=== PATIENT | female | born 1955 | race Caucasian/White ===

== ENCOUNTER 2018-10-01 13:39 | Outpatient (CLI) | payer MEDICARE, OTHER ==
--- NOTE | 2018-10-01 23:00 | Consultation ---
DATE OF CONSULTATION: 10/01/2018 GASTROLOGY CONSULTATION CHIEF COMPLAINT: Anemia. HISTORY OF PRESENT ILLNESS: This is a very pleasant 63-year-old female with multiple medical problems, history of gastric ulcer, status post endoscopy three years ago, presents to us for evaluation for screening colonoscopy for evaluation of anemia. PAST MEDICAL HISTORY: 1. History of bleeding gastric ulcer. 2. Hypertension. 3. Diabetes. 4. Asthma and bronchitis. PAST SURGICAL HISTORY: Appendectomy and tonsillectomy. MEDICATIONS: Please see medication reconciliation list. ALLERGIES: No known drug allergies. FAMILY HISTORY: Father of colon cancer. Mother had hypertension, diabetes, and coronary artery disease. SOCIAL HISTORY: The patient denies any tobacco, alcohol, or drug abuse. REVIEW OF SYSTEM: A 10-point review of systems was performed and pertinent positives in HPI. PHYSICAL EXAM: GENERAL: This is a well-developed female, in no acute distress. HEENT: Normocephalic and atraumatic. Sclerae anicteric. NECK: Supple. No evidence of obvious lymphadenopathy. CARDIOVASCULAR: Regular rate and rhythm. Plus S1 and S2. No obvious murmur. LUNGS: Decreased breath sounds bilaterally based on the supine exam. ABDOMEN: Soft and nontender. No rebound. No guarding. No peritoneal sign. EXTREMITIES: No cyanosis. No clubbing. No edema. ASSESSMENT AND PLAN: This is a very pleasant 63-year-old Kisw[place]ili lady with past medical history of diabetes, hypertension, and history of bleeding gastric ulcer. The patient never had a colonoscopy before. Needs screening colonoscopy and given history of peptic ulcer disease and chronic anemia, also needs endoscopy. The patient was informed of the risks and benefits of the procedure. Prep was given to her and she is scheduled for this coming Monday. I want to thank, Dr. Dariel Bhatti, for this kind referral. Brendan Snyder M.D. DR: YUSRA JOB#: [id number] CC: Dariel Bhatti M.D.; Fax#: [phone]
== END 2018-10-01 15:04 | disposition home or self-care (01) ==
LOC: PAN 13:39
DX: D64.9 Anemia, unspecified (principal); I10 Essential (primary) hypertension; E11.9 Type 2 diabetes mellitus without complications; Z90.89 Acquired absence of other organs; Z80.0 Family history of malignant neoplasm of digestive organs

== ENCOUNTER 2018-10-05 10:27 | Day surgery (SDC) | payer MEDICARE, OTHER ==
[~2018-10-05] VITALS: Ht 152.4 cm; Wt 94.3 kg
[2018-10-05] VITALS (9 sets, daily range): BP systolic 158–193; BP diastolic 79–91
[2018-10-05] MEDS ORDERED: MONTELUKAST SOD10 MG ORAL (11:36)
[2018-10-05] MEDS ORDERED: DAPSONE100 MG ORAL (11:36)
[2018-10-05] MEDS ORDERED: LOSARTAN-HCTZ1 EAC1 ORAL (11:36)
[2018-10-05] MEDS ORDERED: JANUMET 50-1,01 EACH ORAL (11:36)
[2018-10-05] MEDS ORDERED: FOLIC ACID1 MG ORAL (11:36)
[2018-10-05] MEDS ORDERED: PANTOPRAZOLE SO40 MG ORAL (11:36)
[2018-10-05] MEDS ORDERED: VERAPAMIL ER180 M1 PO (11:36)
[2018-10-05] MEDS ORDERED: VITAMIN D250000 UNI1 ORAL (11:36)
[2018-10-05] MEDS ORDERED: FERROUS SULFAT325 MG ORAL (11:36)
--- NOTE | 2018-10-05 11:52 | NUR ---
DR. SHELTON STARTED THE IV AT 1150 AM
[2018-10-05] MEDS ORDERED: Propofol 200mg/20ml IV ONE (12:00)
[2018-10-05] MEDS ORDERED: fentaNYL 100 mcg/2 mL IV ONE (12:00)
[2018-10-05] MEDS ORDERED: Midazolam 2mg/2ml Inj ONE (12:00)
--- NOTE | 2018-10-05 12:06 | Pre-Procedure Note/Attestation ---
Pre-Procedure Note/Attestation Complete Prior to Procedure Planned Procedure: not applicable Procedure Narrative: egd/colonoscopy Indications for Procedure Pre-Operative Diagnosis: screening colon, gerd Attestation I attest that I discussed the nature of the procedure; its benefits; risks and complications; and alternatives (and the risks and benefits of such alternatives ), prior to the procedure, with the patient (or the patient's legal hvac sales representative). I attest that, if there was a reasonable possibility of needing a blood transfusion, the patient (or the patient's legal hvac sales representative) was given the [facility] standardized written summary, pursuant to the Dave Tiffany Blood Safety Act ([place] Health and Safety Code # 1645, as amended). I attest that I re-evaluated the patient just prior to the surgery and that there has been no change in the patient's H&P, except as documented below: Brendan Snyder MD Oct 05, 2018 12:06
--- NOTE | 2018-10-05 12:08 | Short Stay Surgery H&P ---
History of Present Illness History of Present Illness Chief Complaint see office note HPI Camille Portillo is a 63 year old female who was admitted on for Anemia Patient History Allergies: Coded Allergies: No Known Allergies (Unverified , 10/04/18) Medication History Scheduled Dapsone* (Dapsone*), 100 MG ORAL DAILY, (Reported) Ergocalciferol (Vitamin D2)* (Vitamin D*), 50,000 UNIT ORAL ONCE A WEEK, ( Reported) Ferrous Sulfate* (Ferrous Sulfate*), 325 MG ORAL DAILY, (Reported) Folic Acid* (Folic Acid*), 1 MG ORAL DAILY, (Reported) Losartan/Hydrochlorothiazide (Losartan-Hctz 100-25 Mg Tab), 1 TAB ORAL DAILY, ( Reported) Montelukast Sodium* (Montelukast Sodium*), 10 MG ORAL DAILY, (Reported) Pantoprazole* (Pantoprazole*), 40 MG ORAL DAILY, (Reported) Sitagliptin Phos/Metformin Hcl (Janumet 50-1,000 Mg Tablet), 1 TAB ORAL TWICE A DAY, (Reported) Verapamil Hcl (Verapamil Er), 180 MG PO DAILY, (Reported) Physical Exam Vital Signs Last Vital Signs Date Time Temp Pulse Resp B/P (MAP) Pulse Ox O2 Delivery O2 Flow Rate FiO2 10/05/18 11:47 Room Air 10/05/18 11:27 98.4 81 18 162/82 95 Plan Attestation Are the patient's medical conditions optimized for surgery? Brendan Snyder MD Oct 05, 2018 12:08
--- NOTE | 2018-10-05 12:16 | Endoscopy Procedure Note ---
Endoscopy Procedure Note General Indication for Procedure: screening colon, GERD Procedures Performed: EGD, colonoscopy Operative Findings/Diagnosis: gastritis, duodenitis, hemorrhoids Specimen: yes Pt Tolerated Procedure Well: Yes Estimated Blood Loss: none Anesthesia Anesthesiologist: radha white Anesthesia: MAC Inserted Devices Implant(s) used?: No Quality Quality of Bowel Preparation: Good Did scope reach the cecum?: Yes Was there any complications?: No GI Core Measures 50 yrs or older w/o bx or poly: No 10yrs. F/U recommended: Yes If not recommended, why?: Above average risk 18 years or older w/prev. colo: No Brendan Snyder MD Oct 05, 2018 12:16
[2018-10-05] MEDS ORDERED: LR 1000ml 1,000 ML IVLG SCH (12:52)
--- NOTE | 2018-10-05 12:52 | Anethesia Preoperative Eval ---
Anesthesia Pre-op PMH/ROS General Date of Evaluation: Oct 05, 2018 Time of Evaluation: 11:40 Anesthesiologist: Nico ASA Score: ASA 3 Mallampati Score Class I : Soft palate, uvula, fauces, pillars visible Class II: Soft palate, uvula, fauces visible Class III: Soft palate, base of uvula visible Class IV: Only hard plate visible Mallampati Classification: Class III Surgeon: Claudio Diagnosis: Abdominal pain anemia Surgical Procedure: EGD Colonoscopy Anesthesia History: none Family History: no anesthesia problems Allergies: Coded Allergies: No Known Allergies (Unverified , 10/04/18) Medications: see eMAR Patient NPO?: Yes Past Medical History Cardiovascular: Reports: HTN; Denies: CAD, [place], valve dz, arrhythmia, other Pulmonary: Reports: IRASEMA Gastrointestinal/Genitourinary: Reports: GERD; Denies: CRI, ESRD, other Neurologic/Psychiatric: Reports: depression/anxiety; Denies: dementia, CVA, TIA, other Endocrine: Reports: DM - poorly controlled on pills; Denies: hypothyroidism, steroids, other HEENT: Denies: cataract (L), cataract (R), glaucoma, [place] (L), [place] (R), other Hematology/Immune: Reports: anemia; Denies: DVT, bleeding disorder, other Other: obesity - morbid obesity PMH Narrative: as above PSxH Narrative: Appendectomy Anesthesia Pre-op Phys. Exam Physician Exam Last Vital Signs Date Time Temp Pulse Resp B/P (MAP) Pulse Ox O2 Delivery O2 Flow Rate FiO2 10/05/18 11:47 Room Air 10/05/18 11:27 98.4 81 18 162/82 95 Constitutional: NAD Neurologic: CN 2-12 intact Cardiovascular: RRR Respiratory: other - some wheezing Airway Exam Mallampati Score: Class III MO: limited Neck: short ROM: limited Teeth: missing Dentures: no upper, no lower Anesthesia Pre-op A/P Risk Assessment & Plan Assessment: ASA3 Plan: MAC Status Change Before Surgery: Ethan Rosario MD Oct 05, 2018 12:52
[2018-10-05] MEDS ORDERED: fentaNYL 100 mcg/2 mL IV PRN (13:00)
--- NOTE | 2018-10-05 13:29 | Immediate Post-Op Evaluation ---
Immediate Post-Op Evalulation Immediate Post-Op Evalulation Procedure: EGD Colonoscopy, polypectomy Date of Evaluation: Oct 05, 2018 Time of Evaluation: 13:27 IV Fluids: 1000 Blood Products: none Estimated Blood Loss: min Urinary Output: none Blood Pressure Systolic: 156 Blood Pressure Diastolic: 78 Pulse Rate: 85 Respiratory Rate: 22 O2 Sat by Pulse Oximetry: 97 Temperature (Fahrenheit): 97.8 Pain Score (1-10): 2 Nausea: No Vomiting: No Complications none Patient Status: awake, patent, none Hydration Status: adequate Ethan Walsh MD Oct 05, 2018 13:29
--- NOTE | 2018-10-05 22:00 | Procedure Note ---
DATE OF PROCEDURE: 10/05/2018 SURGEON: Brendan Snyder M.D. PROCEDURE: Upper endoscopy with biopsy and colonoscopy with biopsy, polypectomy. ANESTHESIA: Per Dr. Walsh. INSTRUMENT: Olympus adult flexible upper endoscope and colonoscope. INDICATION: Screening colonoscopy evaluation, chronic GERD. REASON FOR PROCEDURE: The procedure, risks, benefits, and possible consequences, including hemorrhage, aspiration, perforation and infection, and alternative treatments, were explained to the patient/legal guardian by Dr. Brendan Snyder and the patient/legal guardian understood and accepted these risks. DESCRIPTION OF PROCEDURE: After informed consent was obtained, the patient was adequately sedated, Olympus upper endoscope was advanced from mouth into the second portion of duodenum and retroflexion was performed in the stomach. The patient has evidence of diffuse gastritis. Random biopsy from antrum was obtained to rule out H. pylori infection. Duodenum lining looked abnormal especially in duodenal bulb. Looked like cobblestoning with some maybe 1 or 2 small erosions in the duodenal bulb. Biopsies from the duodenal bulb was also obtained. At this time, the upper endoscope was retrieved and the patient was turned over for colonoscopy. First, rectal exam was performed which was normal. Then, the scope was advanced from the rectum into cecum documented by appendiceal orifice, ileocecal valve, and right upper quadrant palpation. Quality of prep was very good. This colonoscopy was extremely challenging and prolonged. The patient had numerous polyps. In this colonoscopy examination, we took about 14 of them out. In the cecum, the patient had 2 polyps, one measured roughly about 6 mm. The other one was flat and measured roughly about 5 mm. Both removed with hot snare polypectomy technique. In the ascending colon, there were numerous deep polyps, one of them was at least 2.5 cm in size, another one 1.5 cm in size, another one 1 cm in size, and two other smaller ones in the ascending colon. This area was of concern because the big ones, we were able to remove piece by piece and at the end we cauterized with the tip of the snare the area at the base of the polyps. Also the other two large polyps were removed and collected with Joshi Net and removed. The patient had multiple other polyps in the transverse colon, sigmoid colon also. Retroflexion of the rectum also showed evidence of internal hemorrhoids. SUMMARY OF FINDINGS: 1. Gastritis, status post biopsy. 2. Abnormal lining of the duodenum with cobblestoning and erosions, status post biopsy. 3. Multiple polyps, the largest one in the ascending colon over 2.5 cm in size removed by piecemeal fashion. RECOMMENDATIONS: 1. We will recommend follow path and treat accordingly. 2. The patient will need a repeat colonoscopy I would say maybe in 3 months, scope back, and remove more polyps from the ascending colon and make sure the site of the deep polypectomy is completely clear because this procedure was significantly prolonged and the body was very huge and we just wanted to make sure that it is completely excised. If not, then remove more and the patient can have more polyps. So, we are going to communicate with the patient to get back in 3 months for repeat colonoscopy. I want to thank Dr. Dariel Bhatti for this kind referral. Brendan Snyder M.D. DR: MARIBELL JOB#: [id number] CC: Dariel Bhatti M.D.; Fax#: [phone]
== END 2018-10-05 14:25 | disposition home or self-care (01) ==
LOC: GAS 10:27
DX: Z12.11 Encounter for screening for malignant neoplasm of colon (principal); K21.9 Gastro-esophageal reflux disease without esophagitis; K63.5 Polyp of colon; K64.8 Other hemorrhoids; D64.9 Anemia, unspecified; Z79.899 Other long term (current) drug therapy; K29.50 Unspecified chronic gastritis without bleeding; D12.0 Benign neoplasm of cecum; D12.5 Benign neoplasm of sigmoid colon; D12.3 Benign neoplasm of transverse colon; D37.4 Neoplasm of uncertain behavior of colon
CPT/HCPCS: 43239; 45380; 45385; 82962; 93005; J2250; J2704; J3010; 94003; 94150

== ENCOUNTER 2019-01-09 08:10 | Day surgery (SDC) | payer MEDICARE, MEDICAID ==
[2019-01-09] VITALS (8 sets, daily range): BP systolic 137–160; BP diastolic 64–80
[~2019-01-09] VITALS: Ht 165.1 cm; Wt 92.1 kg
[~2019-01-09 08:10] MED LIST: CALCIUM500 M2 PO; DAPSONE100 MG ORAL; FERROUS SULFAT325 MG ORAL; FOLIC ACID1 MG ORAL; JANUMET 50-1,01 EACH ORAL; LOSARTAN-HCTZ1 EAC1 ORAL; LR 1000ml 1,000 ML IVLG SCH; MONTELUKAST SOD10 MG ORAL; PANTOPRAZOLE SO40 MG ORAL; VERAPAMIL ER180 M1 PO; VITAMIN C500 M1 ORAL; VITAMIN D250000 UNI1 ORAL
[2019-01-09] MEDS ORDERED: LR 1000ml 1,000 ML IVLG SCH (09:18)
--- NOTE | 2019-01-09 09:18 | Anethesia Preoperative Eval ---
Anesthesia Pre-op PMH/ROS General Date of Evaluation: Jan 09, 2019 Time of Evaluation: 09:14 Anesthesiologist: Nico ASA Score: ASA 3 Mallampati Score Class I : Soft palate, uvula, fauces, pillars visible Class II: Soft palate, uvula, fauces visible Class III: Soft palate, base of uvula visible Class IV: Only hard plate visible Mallampati Classification: Class III Surgeon: Claudio Diagnosis: Abdominal pain Surgical Procedure: Colonoscopy Anesthesia History: none Family History: no anesthesia problems Allergies: Coded Allergies: No Known Allergies (Unverified , 01/09/19) Medications: see eMAR Patient NPO?: Yes Past Medical History Cardiovascular: Reports: HTN; Denies: CAD, [place], valve dz, arrhythmia, other Pulmonary: Reports: IRASEMA; Denies: asthma, COPD, other Gastrointestinal/Genitourinary: Reports: GERD; Denies: CRI, ESRD, other Neurologic/Psychiatric: Denies: dementia, CVA, depression/anxiety, TIA, other Endocrine: Reports: DM; Denies: hypothyroidism, steroids, other HEENT: Denies: cataract (L), cataract (R), glaucoma, [place] (L), [place] (R), other Hematology/Immune: Denies: anemia, DVT, bleeding disorder, other Musculoskeletal/Integumentary: Denies: OA, RA, DJD, DDD, edema, other Other: obesity PMH Narrative: as above PSxH Narrative: see H&P Anesthesia Pre-op Phys. Exam Physician Exam Last Vital Signs Date Time Temp Pulse Resp B/P (MAP) Pulse Ox O2 Delivery O2 Flow Rate FiO2 01/09/19 09:05 Room Air 01/09/19 08:54 97.4 84 18 157/80 94 Constitutional: NAD Neurologic: CN 2-12 intact Cardiovascular: RRR, no M/R/G Respiratory: CTA Gastrointestinal: other - obesity Airway Exam Mallampati Score: Class III MO: limited Neck: short ROM: limited Teeth: intact Dentures: no upper, no lower Anesthesia Pre-op A/P Risk Assessment & Plan Assessment: ASA 3 Plan: MAC Status Change Before Surgery: Ethan Rosario MD Jan 09, 2019 09:18
[2019-01-09] MEDS ORDERED: fentaNYL 100 mcg/2 mL IV PRN (09:30)
--- NOTE | 2019-01-09 09:32 | Pre-Procedure Note/Attestation ---
Pre-Procedure Note/Attestation Complete Prior to Procedure Planned Procedure: not applicable Procedure Narrative: colon oscopy Indications for Procedure Pre-Operative Diagnosis: multiple colon polyps Attestation I attest that I discussed the nature of the procedure; its benefits; risks and complications; and alternatives (and the risks and benefits of such alternatives ), prior to the procedure, with the patient (or the patient's legal motor vehicle representative). I attest that, if there was a reasonable possibility of needing a blood transfusion, the patient (or the patient's legal motor vehicle representative) was given the [facility] standardized written summary, pursuant to the Dave Langhorne Blood Safety Act ([place] Health and Safety Code # 1645, as amended). I attest that I re-evaluated the patient just prior to the surgery and that there has been no change in the patient's H&P, except as documented below: Brendan Snyder MD Jan 09, 2019 09:32
--- NOTE | 2019-01-09 09:32 | Short Stay Surgery H&P ---
History of Present Illness History of Present Illness Chief Complaint see recent office note HPI Camille Portillo is a 63 year old female who was admitted on for Multiple Colonic Polyps Patient History Allergies: Coded Allergies: No Known Allergies (Unverified , 01/09/19) Medication History Scheduled Ascorbic Acid* (Vitamin C*), 500 MG ORAL DAILY, (Reported) Calcium Carbonate (Calcium), 500 MG PO DAILY, (Reported) Dapsone* (Dapsone*), 100 MG ORAL DAILY, (Reported) Ergocalciferol (Vitamin D2)* (Vitamin D*), 50,000 UNIT ORAL ONCE A WEEK, ( Reported) Ferrous Sulfate* (Ferrous Sulfate*), 325 MG ORAL DAILY, (Reported) Folic Acid* (Folic Acid*), 1 MG ORAL DAILY, (Reported) Losartan/Hydrochlorothiazide (Losartan-Hctz 100-25 Mg Tab), 1 TAB ORAL DAILY, ( Reported) Montelukast Sodium* (Montelukast Sodium*), 10 MG ORAL DAILY, (Reported) Pantoprazole* (Pantoprazole*), 40 MG ORAL DAILY, (Reported) Sitagliptin Phos/Metformin Hcl (Janumet 50-1,000 Mg Tablet), 1 TAB ORAL TWICE A DAY, (Reported) Verapamil Hcl (Verapamil Er), 180 MG PO DAILY, (Reported) Physical Exam Vital Signs Last Vital Signs Date Time Temp Pulse Resp B/P (MAP) Pulse Ox O2 Delivery O2 Flow Rate FiO2 01/09/19 09:05 Room Air 01/09/19 08:54 97.4 84 18 157/80 94 Plan Attestation Are the patient's medical conditions optimized for surgery? Brendan Snyder MD Jan 09, 2019 09:32
[2019-01-09] MEDS ORDERED: LR 1000ml ONE (10:00)
[2019-01-09] MEDS ORDERED: fentaNYL 100 mcg/2 mL IV ONE (10:00)
[2019-01-09] MEDS ORDERED: Propofol 200mg/20ml IV ONE (10:00)
[2019-01-09] MEDS ORDERED: Midazolam 2mg/2ml Inj ONE (10:00)
--- NOTE | 2019-01-09 10:58 | Endoscopy Procedure Note ---
Endoscopy Procedure Note General Indication for Procedure: multiple polyps Procedures Performed: colonoscopy Operative Findings/Diagnosis: same Specimen: yes Pt Tolerated Procedure Well: Yes Estimated Blood Loss: none Anesthesia Anesthesiologist: madai ross Anesthesia: MAC Inserted Devices Implant(s) used?: No Quality Quality of Bowel Preparation: Good Did scope reach the cecum?: Yes Was there any complications?: No GI Core Measures 50 yrs or older w/o bx or poly: No 10yrs. F/U recommended: Yes If not recommended, why?: Above average risk 18 years or older w/prev. colo: Yes <3yrs. since last colonoscopy: Yes Med reason:<3 yrs.: Piecemeal removal-Adenoma Brendan Snyder MD Jan 09, 2019 10:58
--- NOTE | 2019-01-09 11:04 | Immediate Post-Op Evaluation ---
Immediate Post-Op Evalulation Immediate Post-Op Evalulation Procedure: Colonoscopy polipectomy Date of Evaluation: Jan 09, 2019 Time of Evaluation: 11:03 IV Fluids: 800 Blood Products: none Estimated Blood Loss: none Urinary Output: none Blood Pressure Systolic: 137 Blood Pressure Diastolic: 71 Pulse Rate: 72 Respiratory Rate: 20 O2 Sat by Pulse Oximetry: 98 Temperature (Fahrenheit): 97.4 Pain Score (1-10): 1 Nausea: No Vomiting: No Complications none Patient Status: reacts, patent, none Hydration Status: adequate Ethan Walsh MD Jan 09, 2019 11:04
--- NOTE | 2019-01-09 17:15 | Procedure Note ---
DATE OF PROCEDURE: 01/09/2019 SURGEON: Brendan Snyder M.D. PROCEDURE: Colonoscopy with biopsy and polypectomy. ANESTHESIA: Per Dr. Walsh. INSTRUMENT: Olympus adult flexible colonoscope. INDICATION: Multiple colonic polyps. REASON FOR PROCEDURE: The procedure, risks, benefits, and possible consequences, including hemorrhage, aspiration, perforation and infection, and alternative treatments, were explained to the patient/legal guardian by Dr. Brendan Snyder and the patient/legal guardian understood and accepted these risks. PROCEDURE IN DETAIL: After informed consent was obtained and the patient was adequately sedated, first rectal exam was performed, which was normal. Then, the scope was advanced from the rectum into the cecum documented by appendix orifice, ileocecal valve, and right upper quadrant palpation. Quality of prep was good. The patient had multiple sessile polyps in the ascending colon area. One of them was actually very difficult to reach, was right on the fold, that was relatively flat. This was also one time we had a hard time last time. The patient's anatomy is very difficult. We put her on the back, put on the side and we put a lot of pressure every time we tried to remove the polyps the scope slips back into the distal colon. We were able to remove at least four or five sessile polyps from the ascending colon. And the big polyp we were trying to do a piecemeal and I think we removed some of it, but I do not think that we removed all of it. The patient had also another sessile large polyp in the sigmoid measured roughly about 1 cm removed with hot snare polypectomy technique. There were two other diminutive polyps in the sigmoid, we removed with the cold biopsy forceps technique. SUMMARY OF FINDINGS: Multiple colonic polyps, especially in the proximal ascending colon. I would say total of about 9 polyps were removed this time again. RECOMMENDATION: Our recommendation for this patient is to follow pathology. The patient will have two options, one is repeating colonoscopy hoping that we can remove that polyp out versus referring to Surgery. We will discuss with this patient when she comes to the office. Brendan Snyder M.D. DR: ERIN JOB#: [id number] CC:
[2019-01-10 10:52] VITALS: BP 142/68
--- NOTE | 2019-01-10 10:52 | 48 Hour Post Anesthesia Eval ---
Post Anesthesia Evaluation Procedure: Colonoscopy polipectomy Date of Evaluation: Jan 09, 2019 Time of Evaluation: 11:28 Blood Pressure Systolic: 142 0: 68 Pulse Rate: 74 Respiratory Rate: 22 Temperature (Fahrenheit): 97.8 O2 Sat by Pulse Oximetry: 98 Airway: patent Nausea: No Vomiting: No Pain Intensity: 1 Hydration Status: adequate Cardiopulmonary Status: stable Mental Status/LOC: patient returned to baseline Follow-up Care/Observations: n/a Post-Anesthesia Complications: none Follow-up care needed: ready to discharge Ethan Walsh MD Jan 10, 2019 10:52
== END 2019-01-09 12:00 | disposition home or self-care (01) ==
LOC: GAS 08:10
DX: K63.5 Polyp of colon (principal); Z79.899 Other long term (current) drug therapy; I10 Essential (primary) hypertension; K21.9 Gastro-esophageal reflux disease without esophagitis; G47.33 Obstructive sleep apnea (adult) (pediatric); E11.9 Type 2 diabetes mellitus without complications; E66.9 Obesity, unspecified; Z68.33 Body mass index [BMI] 33.0-33.9, adult
CPT/HCPCS: 45380; 45385; 82962; 93005; J2250; J2704; J3010; 94003; 94150

== ENCOUNTER 2019-05-16 13:23 | Outpatient (CLI) | payer MEDICARE, MEDICAID ==
[~2019-05-16 13:23] MED LIST changes: -LR 1000ml 1,000 ML IVLG SCH
[2019-05-16] MEDS ORDERED: LINZESS145 MCG PO (13:37)
[2019-05-16] MEDS ORDERED: MIRALAX17 G2 ORAL (13:37)
[2019-05-16 13:39] VITALS: BP 142/62
--- NOTE | 2019-05-16 14:02 | General Progress Note ---
Assessment/Plan Assessment/Plan: Assessment/Plan Problem List: (1) Celiac disease ICD Codes: K90.0 - Celiac disease SNOMED: 121563481 (2) Anemia ICD Codes: D64.9 - Anemia, unspecified SNOMED: 694362442 (3) multiple coln polyps Assessment/Plan: SUMMARY OF FINDINGS: Multiple colonic polyps, especially in the proximal ascending colon. I would say total of about 9 polyps were removed this time again. plan repeat colonoscopy in June 17 2019 if we can not remove the polyp will recommend surg Subjective ROS Limited/Unobtainable: Yes Allergies: Coded Allergies: No Known Allergies (Unverified , 01/09/19) Objective Last 24 Hour Vital Signs Date Time Temp Pulse Resp B/P (MAP) Pulse Ox O2 Delivery O2 Flow Rate FiO2 05/16/19 13:39 97.6 91 18 142/62 (88) 95 General Appearance: alert EENT: normal ENT inspection Neck: supple Cardiovascular: normal rate Respiratory/Chest: decreased breath sounds Abdomen: normal bowel sounds, non tender, soft Extremities: non-tender Brendan Snyder MD May 16, 2019 14:02
== END 2019-05-16 15:23 | disposition home or self-care (01) ==
LOC: PAN 13:23
DX: K90.0 Celiac disease (principal); D64.9 Anemia, unspecified; K63.5 Polyp of colon
CPT/HCPCS: 99212

== ENCOUNTER 2019-08-12 07:49 | Day surgery (SDC) | payer MEDICARE, MEDICAID ==
[~2019-08-12] VITALS: Ht 157.5 cm; Wt 92.1 kg
[2019-08-12] VITALS (8 sets, daily range): BP systolic 147–172; BP diastolic 66–83
--- NOTE | 2019-08-12 06:57 | Anethesia Preoperative Eval ---
Anesthesia Pre-op PMH/ROS General Date of Evaluation: Aug 12, 2019 Time of Evaluation: 06:53 Anesthesiologist: oleksandr ASA Score: ASA 3 Mallampati Score Class I : Soft palate, uvula, fauces, pillars visible Class II: Soft palate, uvula, fauces visible Class III: Soft palate, base of uvula visible Class IV: Only hard plate visible Mallampati Classification: Class II Surgeon: halina Diagnosis: colonic polyps, anemia Surgical Procedure: colonoscopy w/ endocuff Anesthesia History: none Family History: no anesthesia problems Allergies: Coded Allergies: No Known Allergies (Unverified , 08/07/19) Medications: see eMAR Patient NPO?: Yes Past Medical History Cardiovascular: Reports: HTN Pulmonary: Reports: asthma, other - bronchitis Gastrointestinal/Genitourinary: Reports: GERD, other - celiac dz, gastritis, Neurologic/Psychiatric: Reports: depression/anxiety, other - trigeminal nerve inflammation Endocrine: Reports: DM HEENT: Reports: other - decresde visual acuity Hematology/Immune: Reports: anemia Musculoskeletal/Integumentary: Reports: other - back pain PSxH Narrative: gyne sx, Anesthesia Pre-op Phys. Exam Physician Exam Last Vital Signs Date Time Temp Pulse Resp B/P (MAP) Pulse Ox O2 Delivery O2 Flow Rate FiO2 08/12/19 08:17 97.0 79 18 172/79 96 Room Air Constitutional: NAD Neurologic: CN 2-12 intact Cardiovascular: RRR Respiratory: CTA Gastrointestinal: S/NT/ND Airway Exam Mallampati Score: Class II MO: limited Neck: short TMD: 2fb ROM: limited Anesthesia Pre-op A/P Labs Microbiology Date/Time Source Procedure Growth Status 08/09/19 08:10 Nasopharynx Coronavirus COVID-19 PCR ([place]) - Final Complete Studies Pre-op Studies: EKG - sinus rhythm, 1st degree avb, rad Risk Assessment & Plan Assessment: asa3 Plan: mac Status Change Before Surgery: No Pre-Antibiotics Drug: Geovanna Santillan MD Aug 12, 2019 06:57
[~2019-08-12 07:49] MED LIST changes: +Atropine Inj 1mg/10ml Syr IV PRN; +DiphenhydrAMINE 50mg/ml Inj IVP PRN; +LINZESS145 MCG PO; +LR 1000ml 1,000 ML IVLG SCH; +MIRALAX17 G2 ORAL; +Midazolam 2mg/2ml Inj IVP PRN; +fentaNYL 100 mcg/2 mL IV PRN
[2019-08-12] MEDS ORDERED: Lidocaine 1% MPF 10mg/ml 5ml ONE (10:30)
[2019-08-12] MEDS ORDERED: LR 1000ml ONE (10:30)
--- NOTE | 2019-08-12 10:30 | Pre-Procedure Note/Attestation ---
Pre-Procedure Note/Attestation Complete Prior to Procedure Planned Procedure: not applicable Procedure Narrative: colonoscopy Indications for Procedure Pre-Operative Diagnosis: large colon mass Attestation I attest that I discussed the nature of the procedure; its benefits; risks and complications; and alternatives (and the risks and benefits of such alternatives ), prior to the procedure, with the patient (or the patient's legal lifeline representatives). I attest that, if there was a reasonable possibility of needing a blood transfusion, the patient (or the patient's legal lifeline representatives) was given the [facility] standardized written summary, pursuant to the Dave [place] Blood Safety Act ([place] Health and Safety Code # 1645, as amended). I attest that I re-evaluated the patient just prior to the surgery and that there has been no change in the patient's H&P, except as documented below: Brendan Snyder MD Aug 12, 2019 10:30
--- NOTE | 2019-08-12 10:31 | Short Stay Surgery H&P ---
History of Present Illness History of Present Illness Chief Complaint colon polyp HPI Camille Portillo is a 64 year old female who was admitted on for Polyps Patient History Allergies: Coded Allergies: No Known Allergies (Unverified , 08/07/19) PAST MEDICAL HISTORY: (1) multiple coln polyps (2) Anemia (3) Celiac disease Medication History Scheduled Ascorbic Acid* (Vitamin C*), 500 MG ORAL DAILY, (Reported) Calcium Carbonate (Calcium), 500 MG PO DAILY, (Reported) Dapsone* (Dapsone*), 100 MG ORAL DAILY, (Reported) Ergocalciferol (Vitamin D2)* (Vitamin D*), 50,000 UNIT ORAL ONCE A WEEK, ( Reported) Ferrous Sulfate* (Ferrous Sulfate*), 325 MG ORAL DAILY, (Reported) Folic Acid* (Folic Acid*), 1 MG ORAL DAILY, (Reported) Losartan/Hydrochlorothiazide (Losartan-Hctz 100-25 Mg Tab), 1 TAB ORAL DAILY, ( Reported) Montelukast Sodium* (Montelukast Sodium*), 10 MG ORAL DAILY, (Reported) Pantoprazole* (Pantoprazole*), 40 MG ORAL DAILY, (Reported) Polyethylene Glycol 3350* (Miralax*), 17 GM ORAL DAILY, (Reported) Sitagliptin Phos/Metformin Hcl (Janumet 50-1,000 Mg Tablet), 1 TAB ORAL TWICE A DAY, (Reported) Verapamil Hcl (Verapamil Er), 180 MG PO DAILY, (Reported) Miscellaneous Medications Linaclotide (Linzess), 145 MCG PO, (Reported) Review of Systems Cardiovascular: Reports: no symptoms Respiratory: Reports: no symptoms Skeletal: Reports: no symptoms Gastrointestinal: Reports: no symptoms Genitourinary: Reports: no symptoms Neurologic: Reports: no symptoms Endocrine: Reports: no symptoms Physical Exam Vital Signs Last Vital Signs Date Time Temp Pulse Resp B/P (MAP) Pulse Ox O2 Delivery O2 Flow Rate FiO2 08/12/19 08:17 97.0 79 18 172/79 96 Room Air Skin: normal HENT: normal Heart: normal Lungs: normal Abdomen: normal Extremities: normal Plan Plan of Care colonoscopy Attestation Are the patient's medical conditions optimized for surgery? Attestation Response: yes Brendan Snyder MD Aug 12, 2019 10:31
--- NOTE | 2019-08-12 11:41 | Endoscopy Procedure Note ---
Endoscopy Procedure Note General Indication for Procedure: colon polyp Procedures Performed: colonoscopy Operative Findings/Diagnosis: same Specimen: yes Pt Tolerated Procedure Well: Yes Estimated Blood Loss: none Anesthesia Anesthesiologist: franck Anesthesia: MAC Inserted Devices Implant(s) used?: No Quality Quality of Bowel Preparation: Good Did scope reach the cecum?: Yes Was there any complications?: No GI Core Measures 50 yrs or older w/o bx or poly: No 10yrs. F/U recommended: Yes If not recommended, why?: Above average risk 18 years or older w/prev. colo: Yes <3yrs. since last colonoscopy: Yes Med reason:<3 yrs.: Piecemeal removal-Adenoma Brendan Snyder MD Aug 12, 2019 11:41
--- NOTE | 2019-08-12 12:25 | Immediate Post-Op Evaluation ---
Immediate Post-Op Evalulation Immediate Post-Op Evalulation Procedure: colonoscopy w/ bx Date of Evaluation: Aug 12, 2019 Time of Evaluation: 11:41 IV Fluids: 650ml lr Blood Products: none Estimated Blood Loss: negligible Blood Pressure Systolic: 154 Blood Pressure Diastolic: 68 Pulse Rate: 75 Respiratory Rate: 18 O2 Sat by Pulse Oximetry: 100 Temperature (Fahrenheit): 97.2 Pain Score (1-10): 0 Nausea: No Vomiting: No Complications none Patient Status: awake, reacts, patent Hydration Status: adequate Drug: Geovanna Santillan MD Aug 12, 2019 12:25
--- NOTE | 2019-08-12 12:26 | 48 Hour Post Anesthesia Eval ---
Post Anesthesia Evaluation Procedure: colonoscopy w/ bx Date of Evaluation: Aug 12, 2019 Time of Evaluation: 11:43 Blood Pressure Systolic: 147 0: 67 Pulse Rate: 69 Respiratory Rate: 18 Temperature (Fahrenheit): 97.2 O2 Sat by Pulse Oximetry: 100 Airway: patent Nausea: No Vomiting: No Pain Intensity: 0 Hydration Status: adequate Cardiopulmonary Status: stable Mental Status/LOC: patient returned to baseline Post-Anesthesia Complications: none Follow-up care needed: N/A Geovanna Han MD Aug 12, 2019 12:26
--- NOTE | 2019-08-12 17:45 | Procedure Note ---
DATE OF PROCEDURE: 08/12/2019 SURGEON: Brendan Snyder MD. REFERRING PHYSICIAN: Dariel Bhatti MD. PROCEDURE: Colonoscopy with snare polypectomy. ANESTHESIA: Per Dr. Lehman. INSTRUMENT: Olympus adult flexible colonoscope. INDICATION: Large colonic polyp. REASON FOR PROCEDURE: The procedure, risks, benefits, and possible consequences, including hemorrhage, aspiration, perforation and infection, and alternative treatments, were explained to the patient/legal guardian by Dr. Brendan Snyder and the patient/legal guardian understood and accepted these risks. PROCEDURE IN DETAIL: After informed consent was obtained and the patient was adequately sedated, first rectal exam was performed, which was positive external and internal hemorrhoids. Then, the scope was advanced from rectum into the cecum documented by appendix orifice, ileocecal valve, and right upper quadrant palpation. Quality of prep was good. The patient had one sessile polyp in the proximal ascending colon measured roughly about 8 mm, removed with the snare polypectomy technique. There was another small polyp in that region, removed with cold biopsy forceps technique. There was another large polyp in the ascending colon. This polyp is very flat right on the fold, very difficult to grab and seems to be a little bit deep. We removed some part of this polyp with the snare polypectomy. But given this location and the size, we decided just to tattoo it for future possible surgery. There was another small polyp in the descending colon removed with the cold biopsy forceps technique. The patient tolerated the procedure very well without any complication. SUMMARY OF FINDINGS: Four colonic polyps removed, 1 was tattooed for future surgery. RECOMMENDATIONS: Follow pathology and treat accordingly. We currently recommend the patient to be followed by Surgery for resection of that large polyp in ascending colon which is not endoscopically removable. I want to thank Dr. Dariel Bhatti for this kind referral. Brendan Snyder M.D. DR: ERIN JOB#: [id number] CC: Dariel Bhatti M.D.; Fax#: [phone]
== END 2019-08-12 13:40 | disposition home or self-care (01) ==
LOC: GAS 07:49
DX: K63.5 Polyp of colon (principal); K64.8 Other hemorrhoids; K64.4 Residual hemorrhoidal skin tags; K90.0 Celiac disease; Z79.899 Other long term (current) drug therapy; I10 Essential (primary) hypertension; K21.9 Gastro-esophageal reflux disease without esophagitis; F32.9 Major depressive disorder, single episode, unspecified; F41.9 Anxiety disorder, unspecified; E11.9 Type 2 diabetes mellitus without complications; D64.9 Anemia, unspecified; I44.0 Atrioventricular block, first degree
CPT/HCPCS: 45380; 45381; 45385; 93005; 94003; J2704; J7120; 94150